=== PATIENT | female | born 1995 | race Caucasian/White ===

== ENCOUNTER 2018-03-08 12:02 | Emergency (ER) | payer BC, MEDICAID ==
[~2018-03-08] VITALS: Ht 157.5 cm; Wt 81.6 kg
[2018-03-08 12:06] VITALS: BP 106/58
--- NOTE | 2018-03-08 12:12 | NUR ---
PATIENT PRESENTS TO ED WITH COMPLAINTS OF ABNOMAL VAGINAL BLEEDING SINCE TAKING IUD OUT. PATIENT STATES SHE ONLY HAS PAIN WHEN PASSING A BLOOD CLOT. DENIES N/V/D; SKIN IS PINK/WARM/DRY; AAOX4 WITH EVEN AND STEADY GAIT; LUNGS CLEAR BL; HR EVEN AND REGULAR; PT DENIES ANY FEVER, CP, SOB, OR COUGH AT THIS TIME; PATIENT STATES PAIN OF 0/10 AT THIS TIME; VSS; PATIENT POSITIONED FOR COMFORT; HOB ELEVATED; BEDRAILS UP X1; BED DOWN. ER MD MADE AWARE OF PT STATUS.
[2018-03-08] MEDS ORDERED: NACL 0.9% 1,000 ML IV ONE (12:15)
--- NOTE | 2018-03-08 12:48 | NUR ---
ultrasound at bedside at this time.
[2018-03-08 12:52] LABS: BASOPHILS % (AUTO) 0.4 % (0.0-2.0); EOSINOPHILS # (AUTO) 0.1 K/uL (0-0.4); EOSINOPHILS % (AUTO) 1.1 % (0.0-4.0); HEMATOCRIT 35.7 % (36-48); HEMOGLOBIN 11.5 g/dL (12.0-16.0); LYMPHOCYTES # (AUTO) 2.3 K/uL (2.5-16.5); LYMPHOCYTES % (AUTO) 25.1 % (20.5-51.1); MEAN CORPUSCULAR HEMOGLOBIN 24 pg (27-31); MEAN CORPUSCULAR HGB CONC 32 g/dL (33-37); MEAN CORPUSCULAR VOLUME 75.3 fL (80-94); MONOCYTES # (AUTO) 0.3 K/uL (0.8-1.0); MONOCYTES % (AUTO) 3.7 % (1.7-9.3); NEUTROPHILS # (AUTO) 6.3 K/uL (1.8-7.7); NEUTROPHILS % (AUTO) 69.7 % (42.2-75.2); PLATELET COUNT (AUTO) 272 K/uL (140-450); RED BLOOD CELL COUNT(AUTO) 4.74 MIL/uL (4.20-5.40); RED CELL DISTRIBUTION WIDTH 14.9 % (11.6-13.7); WHITE BLOOD COUNT (AUTO) 9.1 K/uL (4.8-10.8)
[2018-03-08 12:54] LABS: APPEARANCE,URINE CLOUDY (CLEAR); BILIRUBIN,URINE 1+ (NEGATIVE); BLOOD, URINE 3+ (NEGATIVE); COLOR,URINE RED (YELLOW); LEUKOCYTE ESTERASE ,URINE NEGATIVE (NEGATIVE); NITRITE, URINE NEGATIVE (NEGATIVE); UGLUCOSE NEGATIVE (NEGATIVE)
[2018-03-08 13:42] LABS: RBC,URINE TOO NUMEROUS TO COUN /HPF (0-5); WBC,URINE 20-60 /HPF (0-5)
[2018-03-08 15:20] VITALS: BP 105/54
--- NOTE | 2018-03-08 15:20 | NUR ---
Patient discharged with v/s stable. Written and verbal after care instructions given and explained. Patient verbalized understanding. Ambulatory with steady gait. All questions addressed prior to discharge. Advised to follow up with PMD.
== END 2018-03-08 15:20 | disposition home or self-care (01) ==
LOC: MED 12:02
DX: N93.8 Other specified abnormal uterine and vaginal bleeding (principal); Z98.890 Other specified postprocedural states
CPT/HCPCS: 36415; 76830; 81001; 84702; 85025; 85610; 85730; 87086; 99285; Q0092

== ENCOUNTER 2021-05-23 15:03 | Emergency (ER) | payer BC, MEDICAID, OTHER ==
[~2021-05-23] VITALS: Ht 165.1 cm; Wt 77.1 kg
[2021-05-23 15:08] VITALS: BP 134/106
--- NOTE | 2021-05-23 15:15 | NUR ---
PT W/C ASSISTED TO BED
--- NOTE | 2021-05-23 15:15 | NUR ---
26 Y/O F BIB SELF FROM HOME, C/O LEG PAIN POST INJURY. PT STATES SHE HAD A TABLE FALL ON HER LEG. UPON ASSESSMENT, LEG HAS VISIBLE BRUISING AND EDEMA ON LOWER EXTREMITY. PT AMBULATES WITH PAIN. PT STATES 7/10 PAIN. PEDAL PULSES 2+ PMH: DENIES [facility]A MED: DENIES
--- NOTE | 2021-05-23 15:21 | NUR ---
XRAY AT BEDSIDE
[2021-05-23] MEDS: KETOROLAC 30 MG/ML VIAL IM ONE (15:24)
--- NOTE | 2021-05-23 15:30 | NUR ---
ULTRASOUND AT BEDSIDE
[2021-05-23] MEDS ORDERED: NAPR-54 PO (16:19)
[2021-05-23 16:27] VITALS: BP 134/106
== END 2021-05-23 16:27 | disposition home or self-care (01) ==
LOC: MED 15:03
DX: S80.12XA Contusion of left lower leg, initial encounter (principal); X50.9XXA Other and unspecified overexertion or strenuous movements or postures, initial encounter; Y93.89 Activity, other specified; Y92.89 Other specified places as the place of occurrence of the external cause; Y99.8 Other external cause status
CPT/HCPCS: 73590; 93971; 96372; 99284; J1885; Q0092

== ENCOUNTER 2024-06-05 17:14 | Emergency (ER) | payer MEDICAID, OTHER ==
[~2024-06-05] VITALS: Ht 160 cm; Wt 72.1 kg
[~2024-06-05 17:14] MED LIST: NAPR-337 PO
[2024-06-05 17:57] VITALS: BP 114/84; PULSE 100; RESP 20; TEMP 98.8; O2SAT 99
[2024-06-05] MEDS ORDERED: CAPS1ADH5 TP (19:04)
[2024-06-05] MEDS ORDERED: ACET500T99 PO (19:04)
== END 2024-06-05 19:20 | disposition home or self-care (01) ==
LOC: MED 17:14
DX: S46.912A Strain of unspecified muscle, fascia and tendon at shoulder and upper arm level, left arm, initial encounter (principal); M54.2 Cervicalgia; Z79.899 Other long term (current) drug therapy; V49.9XXA Car occupant (driver) (passenger) injured in unspecified traffic accident, initial encounter; Y93.89 Activity, other specified; Y92.89 Other specified places as the place of occurrence of the external cause; Y99.8 Other external cause status
CPT/HCPCS: 99282

== ENCOUNTER 2024-06-11 13:15 | Emergency (ER) | payer OTHER ==
[~2024-06-11] VITALS: Ht 160 cm; Wt 73.5 kg
[~2024-06-11 13:15] MED LIST changes: +ACET500T99 PO; +CAPS1ADH5 TP
[2024-06-11 13:18] VITALS: BP 99/72; PULSE 88; RESP 18; TEMP 97.2; O2SAT 99
[2024-06-11] MEDS ORDERED: CYCL-711 PO (13:49)
[2024-06-11] MEDS ORDERED: LID5T TP (13:49)
[2024-06-11] MEDS: KETOROLAC 30 MG/ML VIAL IM ONE (14:05)
[2024-06-11 14:23] VITALS: BP 134/76; PULSE 84; RESP 20; TEMP 98.2; O2SAT 98
== END 2024-06-11 14:26 | disposition home or self-care (01) ==
LOC: MED 13:15
DX: S39.012A Strain of muscle, fascia and tendon of lower back, initial encounter (principal); R42 Dizziness and giddiness; Z79.899 Other long term (current) drug therapy; V49.9XXA Car occupant (driver) (passenger) injured in unspecified traffic accident, initial encounter; Y93.89 Activity, other specified; Y92.89 Other specified places as the place of occurrence of the external cause; Y99.8 Other external cause status
CPT/HCPCS: 96372; 99283; J1885

== ENCOUNTER 2024-06-27 11:09 | Inpatient (IN) | payer OTHER ==
[~2024-06-27] VITALS: Ht 160 cm; Wt 71.2 kg
[~2024-06-27 11:09] MED LIST changes: +CYCL-711 PO; +LID5T TP
[2024-06-27 11:16] VITALS: BP 102/77; PULSE 77; RESP 18; TEMP 97.8; O2SAT 100
[2024-06-27] MEDS ORDERED: DICYCLOMINE HCL LIQUID 10 MG/5 ML UDC ONE (11:42)
[2024-06-27] MEDS ORDERED: ALUMINUM HYD/MAG/SIMETHICONE 30 ML UDC ONE (11:42)
[2024-06-27] MEDS: ONDANSETRON 4 MG ODT PO ONE (11:46)
[2024-06-27] MEDS: DICYCLOMINE HCL LIQUID 20 MG, ALUMINUM HYD/MAG/SIMETHICONE 30 ML, LIDOCAINE VISCOUS 2% ... PO ONE (11:48)
[2024-06-27 11:59] LABS: BLOOD, URINE NEGATIVE (NEGATIVE); COLOR,URINE YELLOW (YELLOW); LEUKOCYTE ESTERASE ,URINE TRACE (NEGATIVE); NITRITE, URINE POSITIVE (NEGATIVE); PROTEIN,URINE TRACE (NEGATIVE); UGLUCOSE NEGATIVE (NEGATIVE)
[2024-06-27 12:47] LABS: BASOPHILS % (AUTO) 0.7 % (0.0-2.0); EOSINOPHILS # (AUTO) 0.1 K/uL (0-0.4); EOSINOPHILS % (AUTO) 1.5 % (0.0-4.0); HEMATOCRIT 36.7 % (36-48); HEMOGLOBIN 11.9 g/dL (12.0-16.0); LYMPHOCYTES % (AUTO) 14.1 % (20.5-51.1); MEAN CORPUSCULAR HEMOGLOBIN 23 pg (27-31); MEAN CORPUSCULAR HGB CONC 32 g/dL (33-37); MEAN CORPUSCULAR VOLUME 72.4 fL (80-94); MONOCYTES # (AUTO) 0.3 K/uL (0.8-1.0); MONOCYTES % (AUTO) 4.5 % (1.7-9.3); NEUTROPHILS # (AUTO) 5.6 K/uL (1.8-7.7); NEUTROPHILS % (AUTO) 79.2 % (42.2-75.2); PLATELET COUNT (AUTO) 301 K/uL (140-450); RED BLOOD CELL COUNT(AUTO) 5.07 MIL/uL (4.20-5.40); RED CELL DISTRIBUTION WIDTH 16.3 % (11.6-13.7); WHITE BLOOD COUNT (AUTO) 7.1 K/uL (4.8-10.8)
[2024-06-27 12:55] LABS: BILIRUBIN,URINE 1+ (NEGATIVE)
[2024-06-27 12:56] LABS: ICTOTEST NEGATIVE (NEGATIVE)
[2024-06-27 12:57] LABS: APPEARANCE,URINE SLIGHTLY HAZY (CLEAR); BACTERIA,URINE FEW /HPF (None Seen); RBC,URINE 0-5 /HPF (0-5); SQUAMOUS EPITHELIAL CELL,UR 4-10 (MOD) /LPF (0-3 (FEW)); WBC,URINE 0-5 /HPF (0-5)
[2024-06-27 12:58] LABS: MUCUS,URINE 1+ /LPF (None Seen)
[2024-06-27 13:03] LABS: ALBUMIN 3.7 g/dL (3.4-5.0); ANION GAP 11.5 (8-16); CARBON DIOXIDE 30.1 mmol/L (21-32); CREATININE 0.6 mg/dL (0.6-1.3); POTASSIUM 3.6 mmol/L (3.5-5.1); TOTAL BILIRUBIN 1.7 mg/dL (0.0-1.0); TOTAL PROTEIN, SERUM 7.3 g/dL (6.4-8.2)
[2024-06-27] MEDS ORDERED: cefTRIAXone 1,000 MG VIAL ONE (15:30)
[2024-06-27] MEDS ORDERED: HYDROcodone/APAP 5/325 MG 1 TAB TAB PO PRN (15:50)
[2024-06-27] MEDS ORDERED: ACETAMINOPHEN 325 MG TAB PO PRN (15:50)
[2024-06-27] MEDS ORDERED: ONDANSETRON 4 MG/2 ML VIAL IVP PRN (15:50)
[2024-06-27] MEDS: NACL 0.9% 1,000 ML IV SCH (16:08)
[2024-06-27 17:54] VITALS: PULSE 78; RESP 18; O2SAT 98
[2024-06-27 18:00] VITALS: PULSE 78; RESP 18; O2SAT 98
[2024-06-27] MEDS: MORPHINE SULFATE 2 MG/ML SYR IVP PRN (18:20)
[2024-06-27 20:00] VITALS: BP 106/68; PULSE 85; RESP 18; TEMP 98.1; O2SAT 96
[2024-06-27] MEDS: PIPERACILLIN/TAZOBACTAM 3.375 GM in DEXTROSE 5% 50 ML IV SCH (20:06)
[2024-06-28] MEDS ORDERED: ENOXAPARIN 40 MG/0.4 ML SYR SUBQ SCH (09:00)
== END 2024-06-27 23:59 | disposition home or self-care (01) ==
LOC: MED 11:09 → MTU 15:50
PROVIDERS: ADMIT Hospitalist; ATTEND Hospitalist
DX: K80.00 Calculus of gallbladder with acute cholecystitis without obstruction (principal); Z79.899 Other long term (current) drug therapy
CPT/HCPCS: 36415; 76705; 80053; 81001; 83690; 85025; 87040; 87081; 96365; 99285; J0696; J2270; J2543; J7060; Q0092; Q0162